=== PATIENT | male | born 1940 | race Hispanic/Latino ===

== ENCOUNTER 2016-10-06 21:06 | Emergency (ER) | payer BC, MEDICARE ==
[2016-10-06 21:14] VITALS: BMI 21.9
--- NOTE | 2016-10-06 21:34 | ED PDOC ---
Arrival/HPI - General Chief Complaint: Shortness Of Breath Time Seen by Provider: 10/06/16 21:20 Historian: Patient - History of Present Illness Narrative History of Present Illness (Text): 10/06/16 21:34 Nathan Cantor is a 75 year old male, whose past medical history includes tobacco abuse, sinusitis, and COPD, who presents to the Emergency department complaining of worsening shortness of breath for the last few weeks. Patient states he was seen by his PMD for similar complaints and advised to come to the Emergency department for further evaluation. Patient denies any fever, chills, chest pain, nausea, vomiting, diarrhea, urinary symptoms, back pain, neck pain, headache, dizziness, or any other complaints. PMD: Dr. Hu Palma Symptom Onset: Gradual Symptom Course: Worsening Activities at Onset: Rest, Light Context: Home Past Medical History - Provider Review Nursing Documentation Reviewed: Yes - Cardiac Hx Cardiac Disorders: No - Pulmonary Hx Respiratory Disorders: Yes Hx Bronchitis: Yes - Neurological Hx Neurological Disorder: Yes Other/Comment: 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 - HEENT Hx HEENT Disorder: No - Renal Hx Renal Disorder: No - Endocrine/Metabolic Hx Endocrine Disorders: No - Hematological/Oncological Hx Blood Disorders: No - Integumentary Hx Dermatological Disorder: No - Musculoskeletal/Rheumatological Hx Musculoskeletal Disorders: No Hx Falls: No - Gastrointestinal Hx Gastrointestinal Disorders: No - Genitourinary/Gynecological Hx Genitourinary Disorders: No - Psychiatric Hx Psychophysiologic Disorder: No Hx Substance Use: No - Anesthesia Hx Anesthesia: Yes Hx Anesthesia Reactions: No Hx Malignant Hyperthermia: No Family/Social History - Physician Review Nursing Documentation Reviewed: Yes Family/Social History: No Known Family HX Smoking Status: Heavy Smoker > 10 Cigarettes Daily Hx Alcohol Use: No Hx Substance Use: No Allergies/Home Meds Allergies/Adverse Reactions: Allergies Sulfa (Sulfonamide Antibiotics) Allergy (Verified 10/06/16 21:14) SHORTNESS OF BREATH Home Medications: Home Meds Medication Instructions Recorded Confirmed busPIRone [Buspar] 5 mg PO TID 02/09/16 10/06/16 Review of Systems - Physician Review All systems were reviewed & negative as marked: Yes - Review of Systems Constitutional: Normal. absent: Fevers Eyes: Normal ENT: Normal Respiratory: SOB Cardiovascular: Normal. absent: Chest Pain Gastrointestinal: Normal. absent: Abdominal Pain, Diarrhea, Nausea, Vomiting Genitourinary Male: Normal. absent: Dysuria, Frequency, Hematuria, Urinary Output Changes Musculoskeletal: Normal. absent: Back Pain, Neck Pain Skin: Normal. absent: Rash Neurological: Normal. absent: Headache, Dizziness Endocrine: Normal Hemo/Lymphatic: Normal Psychiatric: Normal Physical Exam Vital Signs Reviewed: Yes Vital Signs Temp Pulse Resp BP Pulse Ox 10/06/16 23:20 85 16 116/70 94 L 10/06/16 21:30 21 10/06/16 21:20 97.5 F L 10/06/16 21:14 107 H 24 133/66 96 Temperature: Afebrile Blood Pressure: Normal Pulse: Regular Respiratory Rate: Normal Appearance: Positive for: Well-Appearing, Non-Toxic, Comfortable Pain Distress: None Mental Status: Positive for: Alert and Oriented X 3 - Systems Exam Head: Present: Atraumatic, Normocephalic Pupils: Present: PERRL Extroacular Muscles: Present: EOMI Conjunctiva: Present: Normal Mouth: Present: Moist Mucous Membranes Neck: Present: Normal Range of Motion Respiratory/Chest: Present: Decreased Breath Sounds (Decreased breath sounds bilaterally). No: Respiratory Distress, Accessory Muscle Use Cardiovascular: Present: Regular Rate and Rhythm, Normal S1, S2. No: Murmurs Abdomen: Present: Normal Bowel Sounds. No: Tenderness, Distention, Peritoneal Signs Back: Present: Normal Inspection Upper Extremity: Present: Normal Inspection. No: Cyanosis, Edema Lower Extremity: Present: Normal Inspection. No: Edema Neurological: Present: GCS=15, CN II-XII Intact, Speech Normal Skin: Present: Warm, Dry, Normal Color. No: Rashes Psychiatric: Present: Alert, Oriented x 3, Normal Insight, Normal Concentration Medical Decision Making ED Course and Treatment: 10/06/16 21:34 Impression: 75 year old male complaining of worsening shortness of breath for past few weeks. Differential Diagnosis include but are not limited to: COPD vs. CHF vs. pneumonia vs. ACS Plan: -- EKG -- Chest X-ray -- Labs, cardiac enzymes, BNP -- Duoneb -- Reassess and disposition Prior Visits: Notes and results from previous visits were reviewed. Progress Notes: Reviewed EKG, NSR at [address]-segment elevations or depressions, no T-wave inversions, normal intervals. 10/06/16 22:38 Reviewed radiology, Chest X-ray shows chronic interstitial changes. 10/07/16 00:[address] Pittman, covering for Dr. Palma, who is aware and agrees with plan. 10/07/16 00:10 Discussed results and hospital observation plan with pt. Pt states he does not wish to stay in the hospital for further evaluation. Advised pt on the risks of leaving against medical advise including but not limited to underlying cardiac disease/COPD, or . Pt still continues to wish Patient is alert, oriented, and shows the mental capacity to make clear decisions regarding the patients health care at this time. Patient has been advised that they should return to the emergency room immediately if they change their mind at any time, or if their condition begins to change or worsen in any way. - Lab Interpretations Lab Results: 10/06/16 22:00 10/06/16 22:00 Lab Results 10/06/16 22:00: WBC 7.8, RBC 4.25, Hgb 13.9 L, Hct 40.4 L, MCV 95.1, MCH 32.7, MCHC 34.4, RDW 14.6 H, Plt Count 230, MPV 9.2 10/06/16 22:00: Sodium 136, Potassium 4.5, Chloride 99, Carbon Dioxide 29, Anion Gap 13, BUN 17, Creatinine 1.0, Est GFR ( Amer) > 60, Est GFR (Non- Af Amer) > 60, Random Glucose 101, Calcium 9.2, Total Bilirubin 0.5, AST 25, ALT 24, Alkaline Phosphatase 71, Lactate Dehydrogenase 296 L, Total Creatine Kinase 50, Troponin I < 0.01, NT-Pro-B Natriuret Pep 204, Total Protein 7.1, Albumin 3.8, Globulin 3.2, Albumin/Globulin Ratio 1.2 10/06/16 22:00: PT 10.0, INR 0.93, APTT 28.2 - RAD Interpretation Radiology Orders: 10/06/16 21:40 CHEST PORTABLE [RAD] Stat - Medication Orders Current Medication Orders: Discontinued Medications Albuterol/Ipratropium (Duoneb 3 Mg/0.5 Mg (3 Ml) Ud) 3 ml IH ONCE STA Stop: 10/06/16 21:42 Last Admin: 10/06/16 22:00 Dose: 3 ml Albuterol/Ipratropium (Duoneb 3 Mg/0.5 Mg (3 Ml) Ud) 3 ml IH ONCE STA Stop: 10/06/16 22:39 Last Admin: 10/06/16 22:52 Dose: 3 ml Methylprednisolone (Solu-Medrol) 125 mg IVP ONCE ONE Stop: 10/06/16 22:39 Last Admin: 10/06/16 22:52 Dose: 125 mg - Luciibe Statement The provider has reviewed the documentation as recorded by the Ant Lopez Provider Attestation: All medical record entries made by the Ant were at my direction and personally dictated by me. I have reviewed the chart and agree that the record accurately reflects my personal performance of the history, physical exam, medical decision making, and the department course for this patient. I have also personally directed, reviewed, and agree with the discharge instructions and disposition. Disposition/Present on Arrival - Present on Arrival Any Indicators Present on Arrival: No History of DVT/PE: No History of Uncontrolled Diabetes: No Urinary Catheter: No History of Decub. Ulcer: No History Surgical Site Infection Following: None - Disposition Have Diagnosis and Disposition been Completed?: Yes Diagnosis: Dyspnea Disposition: AGAINST MEDICAL ADVICE Disposition Time: 00:18 Condition: STABLE Prescriptions: predniSONE [Prednisone] 40 mg PO DAILY #10 tab Albuterol HFA [Ventolin HFA 90 mcg/actuation (8 g)] 2 puff IH [id number] PRN #1 puff PRN Reason: Wheezing Referrals: Jarocho Palma MD [Primary Care Provider] - Follow up with primary
[2016-10-06] MEDS ORDERED: Albuterol-Ipratrop 3 mg / 0.5 (3 ml) UD IH STA ×2 (21:41→22:38)
[2016-10-06 22:08] VITALS: TEMP 97.5
[2016-10-06 22:20] LABS: HEMATOCRIT 40.4 % (42.0-52.0); MEAN CELL VOLUME 95.1 fL (80.0-105.0); MEAN CORPUSCULAR HEMOGLOBIN 32.7 pg (25.0-35.0); MEAN CORPUSCULAR HGB CONC 34.4 g/dl (31.0-37.0); MEAN PLATELET VOLUME 9.2 fl (7.0-11.0); RED CELL DISTRIBUTION WIDTH 14.6 % (11.5-14.5); WHITE BLOOD COUNT 7.8 10^3/ul (4.5-11.0)
[2016-10-06 22:25] LABS: INR 0.93 (0.93-1.08); PARTIAL THROMBOPLASTIN TIME 28.2 Seconds (23.7-30.8)
[2016-10-06 22:38] LABS: ALB/GLOB RATIO 1.2 (1.1-1.8); ALKALINE PHOSPHATASE 71 U/L (38-133); ALT/SGPT 24 U/L (7-56); AST/SGOT 25 U/L (15-59); BILIRUBIN,TOTAL 0.5 mg/dL (0.2-1.3); BLOOD UREA NITROGEN 17 mg/dL (7-21); CALCIUM 9.2 mg/dL (8.4-10.5); CARBON DIOXIDE 29 mmol/L (21-33); CHLORIDE 99 mmol/L (98-107); GFR AFRICAN-AMERICAN > 60; GLUCOSE,RANDOM 101 mg/dL (70-110); POTASSIUM 4.5 mmol/L (3.6-5.0); SODIUM 136 mmol/L (132-148); TOTAL PROTEIN 7.1 g/dL (5.8-8.3)
[2016-10-06 22:50] LABS: TROPONIN I < 0.01 ng/mL
[2016-10-06 23:21] VITALS: BP 116/70; PULSE 85; RESP 16; O2SAT 94
--- NOTE | 2016-10-07 13:32 | CARD ---
APPROVED REPORT EKG Measurement Heart [id number] <Conclusion> Normal sinus rhythm Normal ECG
--- NOTE | 2016-10-07 15:53 | RAD ---
HISTORY: sob COMPARISON: Chest radiograph and CT scan chest dated 02/11/2016 and 02/09/2016 respectively. FINDINGS: LUNGS: Re- demonstrated are emphysematous changes with upper lobe predominance. Findings are seen to better advantage on prior CT scan. Left upper lobe mass density is also not visible and may have resolved. Followup nonemergent CT scan of the chest could be performed further evaluation. PLEURA: No significant pleural effusion identified, no pneumothorax apparent. CARDIOVASCULAR: Normal. OSSEOUS STRUCTURES: No significant abnormalities. VISUALIZED UPPER ABDOMEN: Normal. OTHER FINDINGS: None. IMPRESSION: Re- demonstrated are emphysematous changes with upper lobe predominance. Findings are seen to better advantage on prior CT scan. Left upper lobe mass density is also not visible and may have resolved. Followup nonemergent CT scan of the chest could be performed further evaluation.
== END 2016-10-07 00:24 | disposition left against medical advice (07) ==
LOC: ED 21:06
DX: R06.00 Dyspnea, unspecified (principal); F17.210 Nicotine dependence, cigarettes, uncomplicated
CPT/HCPCS: 71010; 80053; 82550; 83615; 83880; 84484; 85027; 85610; 85730; 93005; 96374; 99285; J2930

== ENCOUNTER 2017-02-09 14:59 | Inpatient (IN) | payer MEDICARE ==
[2017-02-09 15:01] VITALS: BMI 21.7
[2017-02-09] MEDS ORDERED: Morphine 4 mg/ml ISec IVP STA (15:25)
[2017-02-09 15:47] LABS: ALB/GLOB RATIO 1.5 (1.1-1.8); ALKALINE PHOSPHATASE 68 U/L (38-126); ALT/SGPT 53 U/L (7-56); AST/SGOT 47 U/L (17-59); BILIRUBIN,TOTAL 0.5 mg/dL (0.2-1.3); BLOOD UREA NITROGEN 11 mg/dL (7-21); CALCIUM 8.7 mg/dL (8.4-10.5); CARBON DIOXIDE 22 mmol/L (21-33); CHLORIDE 93 mmol/L (98-107); GFR AFRICAN-AMERICAN > 60; GLUCOSE,RANDOM 88 mg/dL (70-110); POTASSIUM 4.1 mmol/L (3.6-5.0); SODIUM 126 mmol/L (132-148); TOTAL PROTEIN 6.7 g/dL (5.8-8.3)
[2017-02-09 15:56] LABS: BASO # 0.03 K/mm3 (0.0-2.0); BASO % 0.3 % (0.0-3.0); EOS # 0.1 (0.0-0.7); EOS % 0.5 % (1.5-5.0); GRAN # 8.29 (1.4-6.5); GRAN % 75.2 % (50.0-68.0); HEMATOCRIT 37.9 % (42.0-52.0); LYMPH # 1.8 (1.2-3.4); MEAN CORPUSCULAR HEMOGLOBIN 32.8 pg (25.0-35.0); MEAN CORPUSCULAR HGB CONC 35.6 g/dl (31.0-37.0); MEAN PLATELET VOLUME 8.7 fl (7.0-11.0); MONO # 0.9 (0.1-0.6); RED CELL DISTRIBUTION WIDTH 14.6 % (11.5-14.5)
--- NOTE | 2017-02-09 15:57 | ED PDOC ---
Arrival/HPI <Timi Pendleton - Last Filed: 02/09/17 16:56> <Juan Moctezuma - Last Filed: 02/09/17 17:04> - General Chief Complaint: Trauma Time Seen by Provider: 02/09/17 15:00 - History of Present Illness Narrative History of Present Illness (Text): 02/09/17 15:57 76 year old male with a past medical history of anxiety and neuropathy of the right foot is presenting to the emergency room post fall. The patient states the fell earlier today while walking out of his kitchen. 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 He could not feel if his foot was on the ground. He states he did not trip , did not hit his head, did not lose consciousness. He attempted to get up but was unable to move his right leg. He states is not currently in any pain, but this could be due to the fact he had 5 beers. He drinks 5 beers every day. PMH: Anxiety, neuropathy of right foot PSH: none Social: drinks 5 beers a day, smokes a pack a day, denies illicit drug use Allergies: Blame cipro for neuropathy of right foot. Sulfa caused him altered mental status (Juan Moctezuma) Associated Symptoms (Text): 02/09/17 16:22 Seen and examined with the resident. Our history and physical exam reveals an elderly gentleman who drinks alcohol daily who had a mechanical fall injuring his right hip. There was no loss of consciousness. No chest pain palpitations or dyspnea. No head trauma. No nausea or vomiting. He has been drinking today. ( Timi Pendleton) Past Medical History - Provider Review Nursing Documentation Reviewed: Yes - Infectious Disease Hx of Infectious Diseases: None - Cardiac Hx Cardiac Disorders: No - Pulmonary Hx Respiratory Disorders: Yes Hx Bronchitis: Yes - Neurological Hx Neurological Disorder: Yes Other/Comment: 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 - HEENT Hx HEENT Disorder: No - Renal Hx Renal Disorder: No - Endocrine/Metabolic Hx Endocrine Disorders: No - Hematological/Oncological Hx Blood Disorders: No - Integumentary Hx Dermatological Disorder: No - Musculoskeletal/Rheumatological Hx Musculoskeletal Disorders: No - Gastrointestinal Hx Gastrointestinal Disorders: No - Genitourinary/Gynecological Hx Genitourinary Disorders: No - Psychiatric Hx Psychophysiologic Disorder: No Hx Substance Use: No - Anesthesia Hx Anesthesia: Yes Hx Anesthesia Reactions: No Hx Malignant Hyperthermia: No <Juan Moctezuma - Last Filed: 02/09/17 17:04> Family/Social History - Physician Review Nursing Documentation Reviewed: Yes Family/Social History: Unknown Family HX Smoking Status: Heavy Smoker > 10 Cigarettes Daily Hx Alcohol Use: No Hx Substance Use: No <Juan Moctezuma - Last Filed: 02/09/17 17:04> Allergies/Home Meds <Timi Pendleton - Last Filed: 02/09/17 16:56> <Juan Moctezuma - Last Filed: 02/09/17 17:04> Allergies/Adverse Reactions: Allergies Sulfa (Sulfonamide Antibiotics) Allergy (Verified 10/06/16 21:14) SHORTNESS OF BREATH Home Medications: Home Meds Medication Instructions Recorded Confirmed busPIRone [Buspar] 5 mg PO TID 02/09/16 02/09/17 Review of Systems - Physician Review All systems were reviewed & negative as marked: Yes - Review of Systems Systems not reviewed;Unavailable: Intoxicated (Drunk - "I had maybe 5-6 beers today") Constitutional: Normal, Other (no head trauma). absent: Fevers Eyes: Normal. absent: Vision Changes, Photophobia, Eye Pain ENT: Normal Respiratory: Normal. absent: SOB, Cough Cardiovascular: Normal Musculoskeletal: Other (unable ) Skin: Normal Neurological: Normal, Other (no LOC) Endocrine: Normal Hemo/Lymphatic: Normal <Juan Moctezuma - Last Filed: 02/09/17 17:04> Physical Exam Vital Signs Reviewed: Yes Temperature: Afebrile Blood Pressure: Hypertensive Pulse: Regular Respiratory Rate: Normal Appearance: Positive for: Well-Appearing, Non-Toxic, Comfortable Pain Distress: None Mental Status: Positive for: Alert and Oriented X 3 - Systems Exam Head: Present: Atraumatic, Normocephalic Extroacular Muscles: Present: EOMI Conjunctiva: Present: Normal Mouth: Present: Moist Mucous Membranes Nose (External): Present: Atraumatic. No: Abrasion Neck: Present: Normal Range of Motion. No: MIDLINE TENDERNESS Respiratory/Chest: Present: Clear to Auscultation. No: Respiratory Distress, Accessory Muscle Use Cardiovascular: Present: Regular Rate and Rhythm, Normal S1, S2 Abdomen: No: Tenderness, Distention, Normal Bowel Sounds, Peritoneal Signs Upper Extremity: Present: Normal Inspection. No: Cyanosis, Edema, Deformity Lower Extremity: Present: Deformity (right leg is externally rotated and shorter compared to left.), Capillary Refill < 2 s, Other (patient unable to actively move right leg. pain with passive movement. ). No: Edema, CALF TENDERNESS, Swelling Neurological: Present: GCS=15, Speech Normal Skin: Present: Warm, Dry, Normal Color Psychiatric: Present: Alert, Oriented x 3, Intoxicated (Drunk) <Juan Moctezuma - Last Filed: 02/09/17 17:04> Vital Signs Temp Pulse Resp BP Pulse Ox 02/09/17 14:59 97.6 F 77 18 152/91 H 93 L Medical Decision Making <Timi Pendleton - Last Filed: 02/09/17 16:56> - Lab Interpretations I have reviewed the lab results: Yes <Juan Moctezuma - Last Filed: 02/09/17 17:04> ED Course and Treatment: 02/09/17 16:40 Patient Seen With Resident: In agreement with resident note and more details are present in their notes. Patient was seen and evaluated with resident, came up with plan and treatment together. 02/09/17 16:56 And discussed with who will admit to telemetry and refers to for orthopedics. refers to orthopedics on-call. Discussed with who will see the patient on consult in the hospital and requests a CT scan of the hip. I will order this for him and he will follow it. (Timi Pendleton) 02/09/17 16:15 Right Hip pain - post mechanical fall - Hip X ray - Rt femoral neck fracture, no pelvic fx seen - CXR - no active disease - EKG - NSR @ 74 bpm; normal axis; normal EKG - Alcohol level is 129 - CIWA protocol - 2mg of Ativan given - PMD is Dr. Palma - has accepted the patient onto his service for admission - Dr. Hernandez ortho consulted Dispo: Admit to Telemetry. (Juan Moctezuma) - Lab Interpretations Lab Results: 02/09/17 15:19 02/09/17 15:19 Lab Results 02/09/17 15:19: PT 9.9, INR 0.92 L, APTT 28.1 02/09/17 15:19: Alcohol, Quantitative 129 H 02/09/17 15:19: Sodium 126 L, Potassium 4.1, Chloride 93 L, Carbon Dioxide 22, Anion Gap 15, BUN 11, Creatinine 0.7, Est GFR ( Amer) > 60, Est GFR (Non- Af Amer) > 60, Random Glucose 88, Calcium 8.7, Total Bilirubin 0.5, AST 47, ALT 53, Alkaline Phosphatase 68, Troponin I < 0.01, Total Protein 6.7, Albumin 4.0, Globulin 2.7, Albumin/Globulin Ratio 1.5 02/09/17 15:19: WBC 11.0 D, RBC 4.12, Hgb 13.5 L, Hct 37.9 L, MCV 92.0, MCH 32.8, MCHC 35.6, RDW 14.6 H, Plt Count 210, MPV 8.7, Gran % 75.2 H, Lymph % ( Auto) 16.0 L, [place] % (Auto) 8.0 H, Eos % (Auto) 0.5 L, Baso % (Auto) 0.3, Gran # 8.29 H, Lymph # 1.8, [place] # 0.9 H, Eos # 0.1, Baso # 0.03 - RAD Interpretation Radiology Orders: 02/09/17 15:21 Hip Right [HIP MIN 2V W/ PELVIS RT] [RAD] Stat 02/09/17 15:22 CXR [CHEST ONE VIEW] [RAD] Stat 02/09/17 16:57 CT HIP W/O CONTRAST BILATERAL [CT] Stat - Medication Orders Current Medication Orders: Multivitamins/Vitamin C 10 ml/Thiamine HCl 100 mg/ Folic Acid 1 mg/ Sodium Chloride 1,011.2 mls @ 100 mls/hr IV .Q10H7M ONE Stop: 02/10/17 02:27 Last Admin: 02/09/17 16:50 Dose: 100 mls/hr Discontinued Medications Lorazepam (Ativan) 2 mg IVP ONCE ONE Stop: 02/09/17 16:23 Morphine Sulfate (Morphine) 4 mg IVP STAT STA Stop: 02/09/17 15:26 Last Admin: 02/09/17 15:30 Dose: 4 mg Ondansetron HCl (Zofran Inj) 4 mg IVP STAT STA Stop: 02/09/17 15:26 Last Admin: 02/09/17 15:31 Dose: 4 mg Disposition/Present on Arrival - Present on Arrival Any Indicators Present on Arrival: No History of DVT/PE: No History of Uncontrolled Diabetes: No Urinary Catheter: No History of Decub. Ulcer: No - Disposition Have Diagnosis and Disposition been Completed?: Yes Patient Plan: Admission, Telemetry <Timi Pendleton - Last Filed: 02/09/17 16:56> - Present on Arrival History of DVT/PE: No History of Uncontrolled Diabetes: No Urinary Catheter: No History of Decub. Ulcer: No History Surgical Site Infection Following: None - Disposition Have Diagnosis and Disposition been Completed?: Yes Disposition Time: 16:15 <Juan Moctezuma - Last Filed: 02/09/17 17:04> - Disposition Diagnosis: Alcohol withdrawal, Hip fracture, right Disposition: HOSPITALIZED Patient Problems: Current Active Problems Problem Status Onset Alcohol withdrawal Acute Hip fracture, right Acute Condition: STABLE Referrals: Jarocho Palma MD [Primary Care Provider] - Follow up with primary Forms: [employer] (Uzbek)
[2017-02-09 15:58] LABS: TROPONIN I < 0.01 ng/mL
[2017-02-09] MEDS ORDERED: Multivitamin (MVI) 10 ML, Thiamine 100 MG, Folic Acid 1 MG in Sodium Chloride 0.9% 1,00... IV ONE (16:21)
[2017-02-09 16:24] LABS: INR 0.92 (0.93-1.08); PARTIAL THROMBOPLASTIN TIME 28.1 Seconds (23.7-30.8)
--- NOTE | 2017-02-09 16:25 | RAD ---
PROCEDURE: Right Hip and pelvis Radiographs. HISTORY: rt hip pain post fall COMPARISON: None. FINDINGS: BONES: There is a displaced right subcapital hip fracture. There is no pelvic fracture JOINTS: Normal. SOFT TISSUES: Normal. OTHER FINDINGS: None. IMPRESSION: There is a displaced right subcapital hip fracture. There is no pelvic fracture
--- NOTE | 2017-02-09 16:26 | RAD ---
PROCEDURE: CHEST RADIOGRAPH, 1 VIEW HISTORY: fall COMPARISON: 10/06/2016 FINDINGS: LUNGS: Clear. PLEURA: No pneumothorax or pleural fluid seen. CARDIOVASCULAR: Normal. OSSEOUS STRUCTURES: No significant abnormalities. VISUALIZED UPPER ABDOMEN: Normal. OTHER FINDINGS: None. IMPRESSION: No active disease.
--- NOTE | 2017-02-09 17:14 | CARD ---
APPROVED REPORT EKG Measurement Heart [id number] <Conclusion> Normal sinus rhythm Normal ECG
--- NOTE | 2017-02-09 18:06 | CT ---
PROCEDURE: CT bilateral hips HISTORY: trauma COMPARISON: Not available TECHNIQUE: 2.5 mm contiguous axial sections were acquired through the pelvis and hips. Sagittal and coronal images were reformatted from the axial scan. FINDINGS: There is a displaced mildly comminuted impacted fracture of the subcapital right proximal femur. The femoral head is medially displaced on the femoral neck and there is some angulation. There is no dislocation. There is no other fracture identified. The remainder of the pelvis is intact. The left hip is unremarkable. Pubic rami and and visualized portions of the iliac bones are unremarkable. There is no significant hematoma about the left hip. There is no soft tissue abnormality identified. Review of the internal pelvic structures demonstrates sigmoid diverticulosis without evidence of diverticulitis. There is no ascites or hemoperitoneum evident. IMPRESSION: Comminuted angled impacted displaced subcapital fracture of the proximal right femur. No left hip fracture.
[2017-02-09] MEDS: Oxycodone/Acetaminophen 5/325 mg Tab PO PRN (22:11)
[2017-02-09] MEDS ORDERED: Pneumococcal 23-Valent Vaccine IM ONE (22:47)
[2017-02-09] MEDS ORDERED: HYDROmorphone 1 mg/ml ISec IVP STA (22:59)
--- NOTE | 2017-02-09 22:59 | CP.PCM.PN ---
Subjective - Date & Time of Evaluation Date of Evaluation: 02/09/17 Time of Evaluation: 22:58 - Subjective Subjective: Patient was seen because he complained of pain in hip , cough and inability to sleep. Pain is severe, no tingling numbness, weakness, in leg, cough is without phglem. No other complaints. This 75 year old male was admitted after a fall, fracture of right proximal femur. Has PMH of anxiety, neuropathy of right foot, sinusitis, smoker, appendectomy, lung abscess, rotator cuff repair,Allergies to sulfa Tonsillectomy ,adenoidectomy. Objective - Vital Signs/Intake and Output Vital Signs (last 24 hours): Temp Pulse Resp BP Pulse Ox 97.6 F 76 18 122/75 96 02/09/17 22:25 02/09/17 22:25 02/09/17 22:25 02/09/17 22:25 02/09/17 18:04 - Medications Medications: Current Medications Multivitamins/Vitamin C 10 ml/Thiamine HCl 100 mg/ Folic Acid 1 mg/ Sodium Chloride 1,011.2 mls @ 100 mls/hr IV .Q10H7M ONE Stop: 02/10/17 02:27 Last Admin: 02/09/17 16:50 Dose: 100 mls/hr Oxycodone/Acetaminophen (Percocet 5/325 Mg Tab) 1 tab PO Q6H PRN PRN Reason: Pain, severe (8-10) Stop: 02/12/17 21:52 Last Admin: 02/09/17 22:11 Dose: 1 tab - Labs Labs: PT 9.9 Seconds (9.9-11.8) 02/09/17 15:19 INR 0.92 (0.93-1.08) L 02/09/17 15:19 APTT 28.1 Seconds (23.7-30.8) 02/09/17 15:19 Laboratory Last Values WBC 11.0 10^3/ul (4.5-11.0) D 02/09/17 15:19 RBC 4.12 10^6/uL (3.5-6.1) 02/09/17 15:19 Hgb 13.5 g/dL (14.0-18.0) L 02/09/17 15:19 Hct 37.9 % (42.0-52.0) L 02/09/17 15:19 MCV 92.0 fl (80.0-105.0) 02/09/17 15:19 MCH 32.8 pg (25.0-35.0) 02/09/17 15:19 MCHC 35.6 g/dl (31.0-37.0) 02/09/17 15:19 RDW 14.6 % (11.5-14.5) H 02/09/17 15:19 Plt Count 210 10^3/uL (120.0-450.0) 02/09/17 15:19 MPV 8.7 fl (7.0-11.0) 02/09/17 15:19 Gran % 75.2 % (50.0-68.0) H 02/09/17 15:19 Lymph % (Auto) 16.0 % (22.0-35.0) L 02/09/17 15:19 [place] % (Auto) 8.0 % (1.0-6.0) H 02/09/17 15:19 Eos % (Auto) 0.5 % (1.5-5.0) L 02/09/17 15:19 Baso % (Auto) 0.3 % (0.0-3.0) 02/09/17 15:19 Gran # 8.29 (1.4-6.5) H 02/09/17 15:19 Lymph # 1.8 (1.2-3.4) 02/09/17 15:19 [place] # 0.9 (0.1-0.6) H 02/09/17 15:19 Eos # 0.1 (0.0-0.7) 02/09/17 15:19 Baso # 0.03 K/mm3 (0.0-2.0) 02/09/17 15:19 PT 9.9 Seconds (9.9-11.8) 02/09/17 15:19 INR 0.92 (0.93-1.08) L 02/09/17 15:19 APTT 28.1 Seconds (23.7-30.8) 02/09/17 15:19 Sodium 126 mmol/L (132-148) L 02/09/17 15:19 Potassium 4.1 mmol/L (3.6-5.0) 02/09/17 15:19 Chloride 93 mmol/L (98-107) L 02/09/17 15:19 Carbon Dioxide 22 mmol/L (21-33) 02/09/17 15:19 Anion Gap 15 (10-20) 02/09/17 15:19 BUN 11 mg/dL (7-21) 02/09/17 15:19 Creatinine 0.7 mg/dL (0.5-1.4) 02/09/17 15:19 Est GFR ( Amer) > 60 02/09/17 15:19 Est GFR (Non-Af Amer) > 60 02/09/17 15:19 Random Glucose 88 mg/dL (70-110) 02/09/17 15:19 Calcium 8.7 mg/dL (8.4-10.5) 02/09/17 15:19 Total Bilirubin 0.5 mg/dL (0.2-1.3) 02/09/17 15:19 AST 47 U/L (17-59) 02/09/17 15:19 ALT 53 U/L (7-56) 02/09/17 15:19 Alkaline Phosphatase 68 U/L (38-126) 02/09/17 15:19 Troponin I < 0.01 ng/mL 02/09/17 15:19 Total Protein 6.7 g/dL (5.8-8.3) 02/09/17 15:19 Albumin 4.0 g/dL (3.0-4.8) 02/09/17 15:19 Globulin 2.7 gm/dL 02/09/17 15:19 Albumin/Globulin Ratio 1.5 (1.1-1.8) 02/09/17 15:19 Alcohol, Quantitative 129 mg/dL (0-10) H 02/09/17 15:19 - Constitutional Appears: Well, No Acute Distress - Head Exam Head Exam: ATRAUMATIC, NORMAL INSPECTION, NORMOCEPHALIC - Eye Exam Pupil Exam: NORMAL ACCOMODATION - ENT Exam ENT Exam: Normal External Ear Exam - Neck Exam Neck Exam: Normal Inspection - Respiratory Exam Respiratory Exam: NORMAL BREATHING PATTERN - Cardiovascular Exam Cardiovascular Exam: absent: JVD - GI/Abdominal Exam GI & Abdominal Exam: absent: Distended - Rectal Exam Rectal Exam: Deferred - Exam Additional comments: Deferred. - Extremities Exam Additional comments: Right proximal femur tenderness positive. - Back Exam Back Exam: NORMAL INSPECTION - Neurological Exam Neurological Exam: Alert, Oriented x3 - Psychiatric Exam Psychiatric exam: Normal Affect, Normal Mood - Skin Skin Exam: Normal Color Assessment and Plan - Assessment and Plan (Free Text) Assessment: Right proximal femur fracture. Right leg pain. Cough. Adjustment insomnia History of sinusitis. Plan: Dilaudid 1 mg IV stat. Ambien 5 mg PO stat. Robitussin 10 ml PO q4h prn coungh. Continue management as per PMD.
[2017-02-09] MEDS: guaiFENesin 200 mg/10 ml Syrup UD PO PRN (23:29)
[2017-02-10] MEDS: Oxycodone/Acetaminophen 5/325 mg Tab PO PRN ×3 (06:58→20:03)
[2017-02-10] MEDS: guaiFENesin 200 mg/10 ml Syrup UD PO PRN ×2 (07:00→20:52)
[2017-02-10] MEDS ORDERED: Multivitamin (MVI) 10 ML, Thiamine 100 MG, Folic Acid 1 MG in Sodium Chloride 0.9% 1,00... IV ONE (10:04)
[2017-02-10] MEDS: Enoxaparin 80 mg Syringe SC SCH (10:53)
[2017-02-10 11:06] LABS: ALB/GLOB RATIO 1.4 (1.1-1.8); ALKALINE PHOSPHATASE 66 U/L (38-126); ALT/SGPT 48 U/L (7-56); AST/SGOT 50 U/L (17-59); BILIRUBIN,TOTAL 1.4 mg/dL (0.2-1.3); BLOOD UREA NITROGEN 10 mg/dL (7-21); CALCIUM 8.7 mg/dL (8.4-10.5); CARBON DIOXIDE 26 mmol/L (21-33); CHLORIDE 90 mmol/L (98-107); GFR AFRICAN-AMERICAN > 60; GLUCOSE,RANDOM 113 mg/dL (70-110); MAGNESIUM 1.7 mg/dL (1.7-2.2); POTASSIUM 4.7 mmol/L (3.6-5.0); SODIUM 124 mmol/L (132-148); TOTAL PROTEIN 6.5 g/dL (5.8-8.3)
[2017-02-10] MEDS: Albuterol 0.5% Inhal Sol (2.5 mg/0.5 ml) UD IH SCH ×3 (15:33→21:24)
--- NOTE | 2017-02-10 16:37 | CP.PCM.CON ---
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) CC:Pain and restricted ROM R hip HPI: 76 yo male preseNTS WITH PAIN AND RESTRICTED rom R hip Pt presents to ER with pain and deformit - R Hip/ pt with ;parestheisas in glove and stocking distribution Xrays/ CT reveal displaced subcapital fx Pt to or when medicallystable for bipolar vs THR Past Patient History - Infectious Disease Hx of Infectious Diseases: None - Past Social History Smoking Status: Current Some Days Smoker - CARDIAC Hx Cardiac Disorders: No - PULMONARY Hx Respiratory Disorders: Yes (SMOKES PPD) Hx Bronchitis: Yes Hx Pneumonia: Yes - NEUROLOGICAL Hx Neurological Disorder: Yes Other/Comment: 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 - HEENT Hx HEENT Problems: No - RENAL Hx Chronic Kidney Disease: No - ENDOCRINE/METABOLIC Hx Endocrine Disorders: No - HEMATOLOGICAL/ONCOLOGICAL Hx Blood Disorders: No - INTEGUMENTARY Hx Dermatological Problems: No - MUSCULOSKELETAL/RHEUMATOLOGICAL Hx Musculoskeletal Disorders: Yes Hx Falls: Yes (02-09-17) Hx Fractures: Yes (RIGHT FEMORAL NECK FX 02-09-17) - GASTROINTESTINAL Hx Gastrointestinal Disorders: No - GENITOURINARY/GYNECOLOGICAL Hx Genitourinary Disorders: No - PSYCHIATRIC Hx Psychophysiologic Disorder: Yes Hx Depression: Yes Hx Substance Use: No - SURGICAL HISTORY Hx Surgeries: No - ANESTHESIA Hx Anesthesia: Yes Hx Anesthesia Reactions: No Hx Malignant Hyperthermia: No Meds Allergies/Adverse Reactions: Allergies Allergy/AdvReac Type Severity Reaction Status Date / Time Sulfa (Sulfonamide Allergy SHORTNESS Verified 02/09/17 22:00 Antibiotics) OF BREATH - Medications Medications: Current Medications Albuterol Sulfate (Albuterol 0.5% Inhal Quiana (2.5 Mg/0.5 Ml) Ud) 2.5 mg IH QID [facility] Last Admin: 02/10/17 15:33 Dose: 2.5 mg Enoxaparin Sodium (Lovenox) 70 mg SC Q24H ANNAMARIE PRN Reason: Protocol Last Admin: 02/10/17 10:53 Dose: 70 mg Folic Acid (Folic Acid) 1 mg PO DAILY [facility] Guaifenesin (Robitussin) 200 mg PO Q4H PRN PRN Reason: Cough and congestion Last Admin: 02/10/17 07:00 Dose: 200 mg Multivitamins/Vitamin C 10 ml/Thiamine HCl 100 mg/ Folic Acid 1 mg/ Sodium Chloride 1,011.2 mls @ 100 mls/hr IV .Q10H7M ONE Stop: 02/10/17 20:10 Last Admin: 02/10/17 12:44 Dose: 100 mls/hr Lorazepam (Ativan) 0.5 mg IVP Q6H PRN; Protocol PRN Reason: Anxiety Last Admin: 02/10/17 12:52 Dose: 0.5 mg Oxycodone/Acetaminophen (Percocet 5/325 Mg Tab) 1 tab PO Q6H PRN PRN Reason: Pain, severe (8-10) Stop: 02/12/17 21:52 Last Admin: 02/10/17 13:59 Dose: 1 tab Physical Exam - Additional Findings Additional findings: [id number] stance/gait- deferred Pt with shortening aND EXT ROTATION r HIP DECREASED SENSAtion in gl;ove and stocking distrib Xrays/ CT treveal displaced subcapital fx R hip Results - Vital Signs Recent Vital Signs: Last Vital Signs Temp 97.9 F 02/10/17 12:00 Pulse 92 H 02/10/17 14:00 Resp 20 02/10/17 12:00 BP 116/64 02/10/17 12:00 Pulse Ox 96 02/09/17 18:04 - Labs Result Diagrams: 02/09/17 15:19 02/10/17 10:50 Labs: Laboratory Results - last 24 hr 02/10/17 10:50 Sodium 124 L Potassium 4.7 Chloride 90 L Carbon Dioxide 26 Anion Gap 13 BUN 10 Creatinine 0.7 Est GFR ( Amer) > 60 Est GFR (Non-Af Amer) > 60 Random Glucose 113 H Calcium 8.7 Magnesium 1.7 Total Bilirubin 1.4 H AST 50 ALT 48 Alkaline Phosphatase 66 Total Protein 6.5 Albumin 3.8 Globulin 2.8 Albumin/Globulin Ratio 1.4 Assessment & Plan - Assessment and Plan (Free Text) Assessment: A- subcapital nfx R hip P- to oR when medically/cardiologically stable
--- NOTE | 2017-02-10 23:18 | HP ---
HISTORY OF PRESENT ILLNESS: The patient is a 76-year-old white male with history of mild hypertension, COPD and alcohol abuse. The patient had come home from work, fell in his apartment injuring his right hip. The patient's family ascended the patient, put him in a chair. The pain was severe and ambulance was called. The patient was brought to the ER and was found to have a right hip fracture. The patient was found to be mildly hyponatremic of sodium 126. The patient had a CT of the hip. Impression was comminuted, angulated, impacted, displaced subcapital fracture with possible right femur. There is no left hip fracture. The patient has complained of some mild discomfort. PHYSICAL EXAMINATION: VITAL SIGNS: Stable. He is afebrile. Blood pressure 122/75. GENERAL: Shows a well-developed, well-nourished white male. CHEST: Clear to auscultation and percussion. HEART: Regular sinus rhythm. ABDOMEN: Benign. EXTREMITIES: Without cyanosis, clubbing, or edema. There is tenderness on palpation of the right hip. There is no internal or external rotation of right foot. The patient moves all extremities. Pulses are intact bilaterally. NEUROLOGIC: The patient is awake, alert and oriented x3. He is somewhat anxious, but not confused or disoriented. There is no diaphoresis. LABORATORY DATA: The patient's laboratory data did reveal a hemoglobin of 13.5. Normal white count. Platelet count was 210. INR was within normal limits. Sodium was 126 and potassium was 4.1. Alcohol level was 129. IMPRESSION: A 76-year-old white male with acute right hip fracture, history of alcohol abuse, elevated alcohol level, hyponatremia and anxiety disorder. Jarocho Palma MD
[2017-02-11] MEDS: Oxycodone/Acetaminophen 5/325 mg Tab PO PRN ×4 (03:08→23:26)
[2017-02-11] MEDS: Albuterol 0.5% Inhal Sol (2.5 mg/0.5 ml) UD IH SCH ×2 (07:07→13:12)
--- NOTE | 2017-02-11 07:25 | CON ---
DATE: 02/11/2017 REQUESTING PHYSICIAN: Dr. Palma. REASON FOR CONSULTATION: Preoperative cardiac evaluation. HISTORY OF PRESENT ILLNESS: This is a 76-year-old man with history of tobacco abuse who was admitted after a fall at home with a resultant hip fracture. Surgical repair is being entertained. Preoperative cardiac evaluation was requested. He denies any prior cardiac history. He states he has had no chest pain or worsening exertional dyspnea. He fell at home yesterday. He denied any loss of consciousness, but states he simply lost his balance. His hip became extremely painful and he was brought to the emergency room. X-rays and CT of the hip revealed a displaced mildly comminuted impacted fracture of the right proximal femur. He is not hypertensive or diabetic. He believes his cholesterol is normal. He does smoke approximately o-troz-zvw-day. PAST MEDICAL HISTORY: Notable for anxiety. 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 ALLERGIES: ADVERSE REACTION TO SULFA IN THE PAST. ALSO, BELIEVES THAT CIPROFLOXACIN CAUSED NEUROPATHY. SOCIAL HISTORY: He smokes c-nvlu-vfh-day and drinks at least 5 beers daily. FAMILY HISTORY: Both parents are from age-related illness. REVIEW OF SYSTEMS: A 10-point review of system is otherwise unremarkable. PHYSICAL EXAMINATION: GENERAL: He is an elderly man who appears comfortable at the present time. VITAL SIGNS: His blood pressure is 102/60 with a pulse of 88 in sinus, respirations are 16. He is afebrile. HEENT: Normocephalic and atraumatic. NECK: Supple. No JVD noted. CHEST: Diffuse scattered rhonchi heard. HEART: PMI normal position. No pathologic murmur or gallops noted. ABDOMEN: Soft and nontender with normoactive bowel sounds. EXTREMITIES: No clubbing, cyanosis or edema. SKIN: Warm and dry. PSYCHIATRIC: Normal mood and affect. NEUROLOGIC: Alert and oriented x3. No gross motor or sensory deficits appreciable. LABORATORY AND DIAGNOSTIC DATA: Potassium 4.7, sodium is 124, BUN and creatinine are 10 and 0.7. White count 11.0, hemoglobin and hematocrit 13.5 and 37.9, platelet count was 210,000. PT and PTT were normal. Alcohol level was 129. An electrocardiogram reveals sinus rhythm with no significant abnormalities. Chest x-ray reveals normal cardiac silhouette with clear lung mitchell. IMPRESSION: The patient appears to be at average risk for his age for perioperative cardiac events. He has no known coronary disease or left ventricular dysfunction. He has no symptoms at the present time. His electrocardiogram is unremarkable. His only risk factors are age and tobacco abuse. From a cardiac standpoint, he appears stable to proceed with surgery as planned. RECOMMENDATIONS: Alcohol abstinence was encouraged. No specific cardiac precautions appear necessary for his hip surgery should it be required. Thank you for this consultation. We will be happy to follow along as needed. Elia Beal MD
[2017-02-11 08:14] LABS: PH,URINE 6.5 (4.7-8.0); URINE BILIRUBIN NEGATIVE (NEGATIVE); URINE BLOOD SMALL (NEGATIVE); URINE GLUCOSE (UA) NEGATIVE (NEGATIVE); URINE KETONE NEGATIVE (NEGATIVE); URINE LEUKOCYTE ESTERASE NEGATIVE Leu/uL (NEGATIVE); URINE PROTEIN NEGATIVE mg/dL (<30 mg/dL); URINE UROBILINOGEN 0.2 E.U./dL (<1 E.U./dL)
[2017-02-11 08:19] LABS: URINE APPEARANCE CLEAR (CLEAR); URINE COLOR YELLOW (YELLOW)
[2017-02-11 08:35] LABS: URINE RBC 0 - 2 /hpf (0-2); URINE WBC 0 - 2 /hpf (0-6)
[2017-02-11] MEDS: Sodium Chloride 0.9% 1,000 ML IV SCH ×2 (08:35→17:05)
[2017-02-11] MEDS: guaiFENesin 200 mg/10 ml Syrup UD PO PRN (08:38)
--- NOTE | 2017-02-11 10:43 | CP.PCM.PN ---
Subjective - Date & Time of Evaluation Date of Evaluation: 02/11/17 Time of Evaluation: 10:35 - Subjective Subjective: S- pt comfortable at bedrest/ explained we are waiting for medical clearance Objective - Vital Signs/Intake and Output Vital Signs (last 24 hours): Temp Pulse Resp BP Pulse Ox 98.2 F 89 20 109/60 98 02/11/17 06:00 02/11/17 06:00 02/11/17 06:00 02/11/17 06:00 02/11/17 06:00 Intake and Output: 02/11/17 02/11/17 06:59 18:59 Intake Total 481 Output Total 850 Balance -369 - Medications Medications: Current Medications Albuterol Sulfate (Albuterol 0.5% Inhal Quiana (2.5 Mg/0.5 Ml) Ud) 2.5 mg IH QID [facility] Last Admin: 02/11/17 07:07 Dose: 2.5 mg Enoxaparin Sodium (Lovenox) 70 mg SC Q24H ANNAMARIE PRN Reason: Protocol Last Admin: 02/10/17 10:53 Dose: 70 mg Folic Acid (Folic Acid) 1 mg PO DAILY [facility] Guaifenesin (Robitussin) 200 mg PO Q4H PRN PRN Reason: Cough and congestion Last Admin: 02/11/17 08:38 Dose: 200 mg Sodium Chloride (Sodium Chloride 0.9%) 1,000 mls @ 125 mls/hr IV .Q8H ANNAMARIE Last Admin: 02/11/17 08:35 Dose: 125 mls/hr Lorazepam (Ativan) 0.5 mg IVP Q6H PRN; Protocol PRN Reason: Anxiety Last Admin: 02/10/17 12:52 Dose: 0.5 mg Oxycodone/Acetaminophen (Percocet 5/325 Mg Tab) 1 tab PO Q6H PRN PRN Reason: Pain, severe (8-10) Stop: 02/12/17 21:52 Last Admin: 02/11/17 08:38 Dose: 1 tab - Labs Labs: 02/10/17 10:50 PT 9.9 Seconds (9.9-11.8) 02/09/17 15:19 INR 0.92 (0.93-1.08) L 02/09/17 15:19 APTT 28.1 Seconds (23.7-30.8) 02/09/17 15:19 - Skin Additional comments: Objective systemic - + etoh liver disease chest and lungss/Cardio- as per DR Palma Musculoskekeltal stance/gait- deferred R lower ext with [id number] and rewstirxted ROM as expected N/V ABNORMAL- pt has glove-in stocking paresthesia in R lower ext Xray- Deonte's 4 subcapital fx R hip/superimposed primary O/A R hip CT scan- confirmatory Na+ today 124/ pt maintained on lovenox 70mg- combined with etoh platelt dysafunction, pt not hemartologically stablke at this point for oR Assessment and Plan - Assessment and Plan (Free Text) Assessment: A - Deonte's 4 subcapital fx R hip superimposed on primary O/A R hip P-to OR when clotting factors stabilize, cardio clearance and normalization of electrolytes(Na+), and DR Palma clears pt medically for surgery Pros cons risks and benfits of THR discusased atlength with pt;concept that closed reduction and pinning is NOT acceptable for a Deonte's 4 didsplaced subcapital fx is discussed NO PROMISES/GUARANTEES
[2017-02-11] MEDS: Enoxaparin 80 mg Syringe SC SCH (10:53)
[2017-02-11 11:42] LABS: ALB/GLOB RATIO 1.3 (1.1-1.8); ALKALINE PHOSPHATASE 59 U/L (38-126); ALT/SGPT 39 U/L (7-56); AST/SGOT 40 U/L (17-59); BILIRUBIN,TOTAL 0.8 mg/dL (0.2-1.3); BLOOD UREA NITROGEN 7 mg/dL (7-21); CALCIUM 8.5 mg/dL (8.4-10.5); CARBON DIOXIDE 27 mmol/L (21-33); CHLORIDE 95 mmol/L (98-107); GFR AFRICAN-AMERICAN > 60; GLUCOSE,RANDOM 168 mg/dL (70-110); MAGNESIUM 1.9 mg/dL (1.7-2.2); POTASSIUM 3.9 mmol/L (3.6-5.0); SODIUM 128 mmol/L (132-148)
--- NOTE | 2017-02-11 15:35 | PN ---
SUBJECTIVE: A 76-year-old white male with COPD, fractured left hip, alcohol abuse, hyponatremia. The patient is slowly improving sodium up to 128 from 124, white count is 11, platelet count 210,000. Blood pressure is 102/56. Sugar is 168. The patient still is complaining of some minimal pain 3/10 of the left hip. The patient is awake, alert and oriented x3. There is no signs of tremors or DTs at this point. The patient is on thiamine. He is on normal saline. He has been seen by Cardiology and also by Dr. Hernandez for possible surgery in the morning. Consultation by Dr. Beal for Cardiology clearance. There were no specific cardiac precautions for this patient. The patient is medically cleared for surgery at this point by Dr. Beal and also by myself medically and by Cardiology. We will continue to monitor his sodium and we will discontinue the Lovenox at the midnight in preparation for surgery. PHYSICAL EXAMINATION: GENERAL: Physical Examination is unchanged. HEART: Regular sinus rhythm. CHEST: Clear to auscultation and percussion. There is no cough. ABDOMEN: Benign. EXTREMITIES: Without cyanosis, clubbing, or edema. Jarocho Palma MD
[2017-02-12] MEDS: Sodium Chloride 0.9% 1,000 ML IV SCH ×2 (00:31→10:24)
[2017-02-12] MEDS: guaiFENesin 200 mg/10 ml Syrup UD PO PRN (01:07)
[2017-02-12] MEDS: Oxycodone/Acetaminophen 5/325 mg Tab PO PRN ×2 (05:03→11:30)
[2017-02-12 07:02] VITALS: O2SAT 96
[2017-02-12] MEDS: Albuterol 0.5% Inhal Sol (2.5 mg/0.5 ml) UD IH SCH ×3 (07:34→13:31)
[2017-02-12 09:38] LABS: HEMATOCRIT 34.4 % (42.0-52.0)
[2017-02-12 09:54] LABS: BLOOD UREA NITROGEN 5 mg/dL (7-21); CALCIUM 8.4 mg/dL (8.4-10.5); CARBON DIOXIDE 31 mmol/L (21-33); CHLORIDE 99 mmol/L (98-107); GFR AFRICAN-AMERICAN > 60; GLUCOSE,RANDOM 94 mg/dL (70-110); POTASSIUM 4.2 mmol/L (3.6-5.0); SODIUM 132 mmol/L (132-148)
--- NOTE | 2017-02-12 12:18 | PN ---
DATE: SUBJECTIVE: This is a 76-year-old white male admitted to the hospital with hyponatremia, fracture of the left hip, alcohol withdrawal, and COPD. The patient currently has a sodium that is up to 132. He is afebrile. Vital signs are stable. Blood pressure is 137/72. Discussion with Dr. Hernandez regarding transfer to [facility] for anterior approach repair of left hip. There is no current orthopedic table available for an anterior approach and Dr. Hernandez will do the surgery today. The patient is medically cleared for discharge. He is also been cleared for surgery by myself and Dr. Beal from cardiology. The patient is without complaints. Minimal pain 2/10 of the right hip. PHYSICAL EXAMINATION: GENERAL: The patient is alert and oriented x3. VITAL SIGNS: Stable. NEUROLOGIC: Grossly intact. There is no tremors, no signs of delirium tremens. There is no signs of withdrawal tremors. HEART: Regular sinus rhythm. CHEST: Clear to auscultation and percussion. ABDOMEN: Benign. EXTREMITIES: Without cyanosis, clubbing, or edema. ASSESSMENT AND PLAN: Lovenox will be held. The patient will be transferred for OR later today. Jarocho Palma MD
[2017-02-12 12:39] VITALS: BP 118/70; RESP 20; TEMP 98.7
--- NOTE | 2017-02-12 15:07 | PN ---
DATE: 02/12/2017 SUBJECTIVE: The patient is seen lying in bed on telemetry. He is comfortable at the present time except for his hip discomfort. He is apparently tentatively scheduled for the surgery later today. He denies any chest pain or dyspnea. CURRENT MEDICATIONS: Included albuterol inhaler, Ativan p.r.n., folic acid, and Percocet p.r.n. OBJECTIVE: GENERAL: He is an elderly male, who appears fairly comfortable at the present time. VITAL SIGNS: Blood pressure 136/70, the pulse of 84, respirations are 14. He is afebrile. HEENT: No JVD. CHEST: Few scattered rhonchi. HEART: PMI in normal position. No pathological murmurs, rub or gallops are noted. ABDOMEN: Soft and nontender with normoactive bowel sounds. EXTREMITIES: No edema. DIAGNOSTIC DATA: No blood work pending from this morning. IMPRESSION: Status post fall with resulting hip fracture, awaits surgical repair. He appears stable from a cardiac standpoint to proceed with surgery as planned. His perioperative cardiovascular risk is average for his age and he appears optimized at the present time. We will be happy to follow along as needed. Elia Beal MD
[2017-02-12] MEDS ORDERED: Oxycodone/Acetaminophen 5/325 mg Tab PO ONE (15:35)
[2017-02-12 16:47] VITALS: PULSE 73
--- NOTE | 2017-02-14 15:44 | DS ---
A 76-year-old white male, discharged on 02/12/2017. The patient was admitted for the fractured right hip, history of COPD, history of mild hypertension, and tobacco abuse and alcohol abuse. The patient has been drinking. Blood alcohol level is 130. The patient was seen in consultation by Dr. Hernandez. The patient was transferred to [facility] before an anterior approach of the right hip fracture. The patient tolerated the procedure well. He was seen in consultation by Dr. Beal for clearance from cardiac clearance. The patient was treated for impending DTs with thiamine, folic acid, and electrolytes. The patient also was hyponatremic on admission and eventually was treated with IV normal saline and sodium level increased to normal. The patient was discharged to [place] in improved condition. Jarocho Palma MD
== END 2017-02-12 16:38 | disposition short-term general hospital (02) | DRG 536 ==
LOC: ED 14:59 → ERH 16:46 → 2RNO 18:10
PROVIDERS: ADMIT Internal Medicine; ATTEND Internal Medicine
DX: S72.011A Unspecified intracapsular fracture of right femur, initial encounter for closed fracture (principal); E87.1 Hypo-osmolality and hyponatremia; F10.239 Alcohol dependence with withdrawal, unspecified; Y90.6 Blood alcohol level of 120-199 mg/100 ml; G62.9 Polyneuropathy, unspecified; J44.9 Chronic obstructive pulmonary disease, unspecified; F41.9 Anxiety disorder, unspecified; I10 Essential (primary) hypertension; F17.210 Nicotine dependence, cigarettes, uncomplicated; F51.02 Adjustment insomnia; J32.9 Chronic sinusitis, unspecified; M16.11 Unilateral primary osteoarthritis, right hip; W19.XXXA Unspecified fall, initial encounter; Y93.01 Activity, walking, marching and hiking; Y92.030 Kitchen in apartment as the place of occurrence of the external cause; Z88.2 Allergy status to sulfonamides

== ENCOUNTER 2018-01-08 07:31 | Day surgery (SDC) | payer MEDICARE ==
[2017-11-27 12:44] VITALS: BMI 20.9
[2018-01-08] MEDS ORDERED: Sodium Chloride 0.9% 1,000 ML IV SCH (09:30)
[2018-01-08] MEDS ORDERED: Propofol 10 mg/ml Inj (20 ML) ONE (09:47)
[2018-01-08] MEDS ORDERED: Phenylephrine 10 mg/ml Inj ONE (10:34)
[2018-01-08] MEDS ORDERED: ePHEDrine 50 mg/ml Inj ONE (10:39)
[2018-01-08 12:11] VITALS: BP 127/76; PULSE 68; RESP 18; TEMP 98; O2SAT 98
== END 2018-01-08 12:39 | disposition home or self-care (01) ==
LOC: ENDO 07:31
PROVIDERS: ATTEND Internal Medicine Gastroenterology
DX: D12.4 Benign neoplasm of descending colon (principal); D12.3 Benign neoplasm of transverse colon; K63.5 Polyp of colon; K57.30 Diverticulosis of large intestine without perforation or abscess without bleeding; K64.8 Other hemorrhoids; R19.4 Change in bowel habit; K63.89 Other specified diseases of intestine
CPT/HCPCS: 45380; 45385; 88305; J2001; J2370; J2704; J7030; J7040